=== PATIENT | female | born 2000 | race Caucasian/White ===

== ENCOUNTER 2019-08-06 09:22 | Outpatient (CLI) | payer OTHER ==
[2019-08-06 10:15] LABS: AMORPHOUS SEDIMENT,URINE TRACE /HPF; APPEARANCE,URINE CLOUDY; BILIRUBIN,URINE NEGATIVE (NEGATIVE); COLOR,URINE YELLOW; GLUCOSE, URINE NEGATIVE (NEGATIVE); KETONES,URINE NEGATIVE (NEGATIVE); LEUKOCYTE ESTERASE,URINE NEGATIVE (NEGATIVE); NITRITE,URINE NEGATIVE (NEGATIVE); PROTEIN,URINE 30 mg/dL (NEGATIVE); URINE SPECIFIC GRAVITY 1.011; UROBILINOGEN,URINE NEGATIVE mg/dL (<2.0)
[2019-08-06 10:29] LABS: URINE AMPHETAMINES SCREEN NEGATIVE; URINE BARBITURATES SCREEN NEGATIVE; URINE BENZODIAZEPINES SCREEN NEGATIVE; URINE COCAINE SCREEN NEGATIVE; URINE MARIJUANA (THC) SCREEN NEGATIVE; URINE METHADONE SCREEN NEGATIVE; URINE PHENCYCLIDINE SCREEN NEGATIVE
[2019-08-06] MEDS ORDERED: RINGERS SOLUTION,LACTATED 1,000 ML IV PRN (10:29)
[2019-08-06] MEDS ORDERED: RINGERS SOLUTION,LACTATED 300 ML IV ONE (10:29)
[2019-08-06] MEDS ORDERED: CEFTRIAXONE INJ 1000 MG VIAL IV ONE ×2 (10:36→11:00)
[2019-08-06] MEDS ORDERED: HYDROXYZINE PAMOATE 50 MG CAPSULE PO ONE (10:36)
[2019-08-06] MEDS ORDERED: CEFTRIAXONE INJ 1000 MG VIAL ONE (10:37)
[2019-08-06] MEDS ORDERED: HYDROXYZINE PAMOATE 50 MG CAPSULE ONE (10:37)
[2019-08-06 11:27] LABS: T.VAGINALIS (WET MOUNT) NO TRICHOMONAS SEEN; WBCS (WET MOUNT) FEW WBCS SEEN; YEAST (WET MOUNT) NO YEAST SEEN
[2019-08-06 11:28] LABS: BACTERIA (WET MOUNT) 4+ BACTERIA SEEN; EPITHELIALS (WET MOUNT) 4+ EPITHELIALS SEEN
--- NOTE | 2019-08-06 12:05 | RADIOLOGY REPORT (SQ) ---
EXAM DESCRIPTION: U/S OB LIMITED COMPLETED DATE/TIME: 08/06/2019 11:45 am REASON FOR STUDY: r/o PTL COMPARISON: None. TECHNIQUE: Limited transabdominal grayscale ultrasound for evaluation of specific requested obstetri tata parameters. LIMITATIONS: None. FINDINGS: CERVICAL LENGTH: 3.3 cm Closed. EMMY: 18 cm. FHR: 145 beats per minute. PRESENTATION: Vertex. PLACENTA: Anterior ANATOMY: Not assessed OTHER: No other findings. IMPRESSION: LIMITED OBSTETRICAL ULTRASOUND WITH MEASURED PARAMETERS DELINEATED ABOVE. Trimester of : Second trimester - 13 weeks 1 day to 27 weeks 6 days. TECHNICAL DOCUMENTATION: JOB ID: [id number]- All Rights Reserved Reading location - IP/workstation name: [email or web address]
[2019-08-06 12:51] LABS: CHLAM PCR NOT DETECTED (NOT DETECT)
== END 2019-08-06 12:21 | disposition home or self-care (01) ==
LOC: LC 09:22
PROVIDERS: ATTEND Obstetrics & Gynecology
PROC: 4A1HXCZ Monitoring of Products of Conception, Cardiac Rate, External Approach (ICD-10-PCS; principal; 2019-08-06)
DX: O47.02 False labor before 37 completed weeks of gestation, second trimester (principal); Z3A.26 26 weeks gestation of pregnancy
CPT/HCPCS: 87210; 81001; 80307; 87491; 87591; 76815; 59899; J0696; 87086

== ENCOUNTER 2019-08-16 19:28 | Outpatient (CLI) | payer OTHER ==
[2019-08-16 20:30] LABS: APPEARANCE,URINE SLIGHTLY-CLOUDY; BILIRUBIN,URINE NEGATIVE (NEGATIVE); COLOR,URINE STRAW; GLUCOSE, URINE NEGATIVE (NEGATIVE); KETONES,URINE NEGATIVE (NEGATIVE); LEUKOCYTE ESTERASE,URINE TRACE (NEGATIVE); NITRITE,URINE NEGATIVE (NEGATIVE); PROTEIN,URINE NEGATIVE (NEGATIVE); URINE SPECIFIC GRAVITY 1.006; UROBILINOGEN,URINE NEGATIVE mg/dL (<2.0)
[2019-08-16 20:49] LABS: URINE AMPHETAMINES SCREEN NEGATIVE; URINE BARBITURATES SCREEN NEGATIVE; URINE BENZODIAZEPINES SCREEN NEGATIVE; URINE COCAINE SCREEN NEGATIVE; URINE MARIJUANA (THC) SCREEN NEGATIVE; URINE METHADONE SCREEN NEGATIVE; URINE PHENCYCLIDINE SCREEN NEGATIVE
== END 2019-08-16 21:43 | disposition home or self-care (01) ==
LOC: LC 19:28
PROVIDERS: ATTEND Student in an Organized Health Care Education/Training Program
PROC: 4A1HXCZ Monitoring of Products of Conception, Cardiac Rate, External Approach (ICD-10-PCS; principal; 2019-08-16)
DX: O36.8120 Decreased fetal movements, second trimester, not applicable or unspecified (principal); Z3A.27 27 weeks gestation of pregnancy
CPT/HCPCS: 59899; 81001; 80307; Q0114

== ENCOUNTER 2019-10-23 19:56 | Outpatient (CLI) | payer OTHER ==
[2019-10-23 20:40] LABS: APPEARANCE,URINE CLOUDY; BILIRUBIN,URINE NEGATIVE (NEGATIVE); COLOR,URINE YELLOW; GLUCOSE, URINE NEGATIVE (NEGATIVE); KETONES,URINE NEGATIVE (NEGATIVE); LEUKOCYTE ESTERASE,URINE MODERATE (NEGATIVE); NITRITE,URINE NEGATIVE (NEGATIVE); PROTEIN,URINE NEGATIVE (NEGATIVE); URINE SPECIFIC GRAVITY 1.011; UROBILINOGEN,URINE NEGATIVE mg/dL (<2.0)
[2019-10-23 20:58] LABS: URINE AMPHETAMINES SCREEN NEGATIVE; URINE BARBITURATES SCREEN NEGATIVE; URINE BENZODIAZEPINES SCREEN NEGATIVE; URINE COCAINE SCREEN NEGATIVE; URINE MARIJUANA (THC) SCREEN NEGATIVE; URINE METHADONE SCREEN NEGATIVE; URINE PHENCYCLIDINE SCREEN NEGATIVE
--- NOTE | 2019-10-23 21:25 | Non Stress Test Report ---
Non Stress Test Datetime Report Generated by CPN: 10/23/2019 21:25 DEMOGRAPHIC EGA NST: 37.4 VITAL SIGNS Temperature - NST: 98.1 MONITORING Monitor Explained: Monitor Explained; Test Explained; Patient Verbalized Understanding Time on Monitor: 10/23/2019 20:33 Time off Monitor: 10/23/2019 20:53 NST Duration: 20 NST INTERVENTIONS NST Interventions: PO Hydration; Reposition Patient Physician Notified NST: Dr. Peñaloza BABY A: [id number] BABY A Movement : Present Contraction Frequency : None FHR Baseline : 130 Accelerations : 15X15 Decelerations : None Variability : Moderate 6-25bpm NST Review: Meets Criteria for Reactive NST NST Review and Verified By : YESICA jon Results: Reactive NST REPORT Report Trigger: Send Report
== END 2019-10-23 21:25 | disposition home or self-care (01) ==
LOC: LC 19:56
PROVIDERS: ATTEND Obstetrics & Gynecology
PROC: 4A1HXCZ Monitoring of Products of Conception, Cardiac Rate, External Approach (ICD-10-PCS; principal; 2019-10-23)
DX: Z34.03 Encounter for supervision of normal first pregnancy, third trimester (principal); Z3A.37 37 weeks gestation of pregnancy
CPT/HCPCS: 59025; 80307; 81005

== ENCOUNTER 2019-10-27 23:45 | Inpatient (IN) | payer OTHER ==
[2019-10-28 00:24] LABS: APPEARANCE,URINE CLOUDY; BILIRUBIN,URINE NEGATIVE (NEGATIVE); COLOR,URINE YELLOW; GLUCOSE, URINE NEGATIVE (NEGATIVE); KETONES,URINE NEGATIVE (NEGATIVE); LEUKOCYTE ESTERASE,URINE MODERATE (NEGATIVE); NITRITE,URINE NEGATIVE (NEGATIVE); PROTEIN,URINE NEGATIVE (NEGATIVE); URINE SPECIFIC GRAVITY 1.009; UROBILINOGEN,URINE NEGATIVE mg/dL (<2.0)
[2019-10-28 00:39] LABS: URINE AMPHETAMINES SCREEN NEGATIVE; URINE BARBITURATES SCREEN NEGATIVE; URINE BENZODIAZEPINES SCREEN NEGATIVE; URINE COCAINE SCREEN NEGATIVE; URINE MARIJUANA (THC) SCREEN NEGATIVE; URINE METHADONE SCREEN NEGATIVE; URINE PHENCYCLIDINE SCREEN NEGATIVE
[2019-10-28] MEDS ORDERED: RINGERS SOLUTION,LACTATED 1,000 ML IV PRN (00:47)
[2019-10-28 01:13] LABS: ABSOLUTE EOSINOPHILS # (AUTO) 0.1 10^3/uL (0.0-0.6); ABSOLUTE LYMPHOCYTES (AUTO) 3.4 10^3/uL (0.5-4.7); ABSOLUTE NEUT (AUTO) 8.3 10^3/uL (1.7-8.2); BASOPHILS % (AUTO) 0.4 % (0-2); EOSINOPHILS % (AUTO) 0.7 % (0-6); HEMOGLOBIN 12.5 g/dL (12.0-15.5); LYMPHOCYTES % (AUTO) 26.4 % (13-45); MEAN CORPUSCULAR HGB CONC 34.7 g/dL (32.0-36.0); MEAN CORPUSCULAR VOLUME 89 fl (80-97); MONOCYTES % (AUTO) 7.7 % (3-13); PLATELET COUNT 236 10^3/uL (150-450); RED BLOOD COUNT 4.03 10^6/uL (3.72-5.28); RED CELL DISTRIBUTION WIDTH 12.4 % (11.5-14.0); SEGMENTED NEUTROPHILS % (AUTO) 64.8 % (42-78); TOTAL CELLS COUNTED % (AUTO) 100 %; WHITE BLOOD COUNT 12.8 10^3/uL (4.0-10.5)
[2019-10-28] MEDS ORDERED: ONDANSETRON HCL INJ/PF 4 MG/2 ML SDV IV PRN (01:19)
[2019-10-28] MEDS ORDERED: ONDANSETRON HCL INJ/PF 4 MG/2 ML SDV ONE (01:20)
[2019-10-28] MEDS ORDERED: RINGERS SOLUTION,LACTATED 1,000 ML IV ONE (01:30)
--- NOTE | 2019-10-28 01:34 | Admission Physical ---
Datetime Report Generated by CPN: 10/28/2019 01:33 CURRENT ADMISSION Chief Complaint: Uterine Contractions; Suspected Ruptured Membranes Indication for Induction: Not Applicable Admit Impression : Term, Intrauterine ; Active Labor; Ruptured Membranes Admit Plan: Admit to Unit; Initiate Labor Protocol ALLERGIES Medication Allergies: No Medication Allergies: No Known Allergies (08/06/2019) Latex: No Latex Allergies Food Allergies: no Environmental Allergies: no OBSTETRICAL HISTORY EDC: 11/09/2019 00:00 : 1 Para: 0 Term: 0 : 0 SAB: 0 IAB: 0 Ectopic: 0 Livin Cesareans: 0 VBACs: 0 Multiple Births: 0 Gestational Diabetes: No Rh Sensitization: No Incompetent Cervix: No AMITA: No Infertility: No ART Treatment: No Uterine Anomaly: No IUGR: No Hx Previous C/S: No Macrosomia: No Hx Loss/Stillborn: No PIH: No Hx : No Placenta Previa/Abruption: No Depression/PP Depression: No PTL/PROM: No Post Hemorrhage: No Current Procedures: Ultrasound Obstetrical History Comments: G1- current SEE RECORDS Alcohol: No Marijuana : No Cocaine: No Other Illicit Drugs: No Cigarettes: Former Smoker. [id number] MEDICAL HISTORY Diabetes: No Blood Transfusion: No Pulmonary Disease (Asthma, TB): No Breast Disease: No Hypertension: No Globe Mounter Surgery: No Heart Disease: No Hosp/Surgery: No Autoimmune Disorder: No Anesthetic Complications: No Kidney Disease: No Abnormal Pap Smear: No Neuro/Epilepsy: No Psychiatric Disorders: Yes Other Medical Diseases: No Hepatitis/Liver Disease: No Significant Family History: No Varicosities/Phlebitis: No Trauma/Violence : No Thyroid Dysfunction: No Medical History Comments: anxiety, depression INFECTIOUS HISTORY Gonorrhea: No Genital Herpes: No Chlamydia: No Tuberculosis: No Syphilis: No Hepatitis: No HIV/AIDS Exposure: No Rash or Viral Illness: No HPV: No PHYSICAL EXAM General: Normal HEENT: Normal Neurologic: Normal Thyroid: Deferred Heart: Normal Lungs: Normal Breast: Deferred Back: Normal Abdomen: Normal Genitourinary Exam: Normal Extremities: Normal DTRs: Normal Pelvic Type: Adequate Vital Signs: Reviewed VAGINAL EXAM Dilatation: 5 Effacement: 80 Station: 0 Contraction Comments: q 2-3 MEMBRANES Membranes: Ruptured Amniotic Fluid Color: Clear FETUS A EGA: 38.2 Monitoring: External US FHR- Baseline: 125 Variability: Moderate 6-25bpm Accelerations: 15X15 Decelerations: None FHR Category: Category I Presentation: Vertex Admit Comment: 19yo at 38+2ega presents for regular uterine ctx and LOF (clear ) at 2330. She is GBS negative. SHe received care at [facility]. Failed 1 hr GTT - passed 3 hr GTT. No h/o HSV. Anemia. She is declining epidural at this time but it is available if she desires. Admit and anticipate . PLANS FOR LABOR AND DELIVERY Labor and Delivery: Plan Pain Management: Natural Feeding Preference: Breast Benefit of Breast Feed Discussed: Yes Circumcision: Yes INFORMED CONSENT Informed Consent Obtained: Vaginal Delivery; Risks, Benefits and Alternatives Discussed Signature: with User ID: [email or web address]
[2019-10-28] MEDS ORDERED: OXYTOCIN 10 UNIT/ML VIAL ONE (01:58)
[2019-10-28] MEDS ORDERED: OXYTOCIN/NORMAL SALINE 20 UNIT/1,000 ML RTUINJ ONE (01:59)
[2019-10-28] MEDS ORDERED: BUPIVACAINE HCL 0.25 % INJ/PF (2.5 MG/1 ML) 30 ML VIAL ONE (01:59)
[2019-10-28] MEDS ORDERED: MISOPROSTOL 0.2 MG TABLET ONE (01:59)
[2019-10-28] MEDS ORDERED: EPHEDRINE SULFATE INJ 50 MG/1 ML AMPULE ONE (01:59)
[2019-10-28] MEDS ORDERED: FENTANYL/BUPIVACAINE/NS/PF 300 MCG/150 ML RTUINJ EPI ONE (01:59)
[2019-10-28] MEDS ORDERED: LIDOCAINE 1% INJ-PF (10 MG/ML) 30 ML SDV ONE (01:59)
[2019-10-28] MEDS ORDERED: PROMETHAZINE HCL 25 MG TABLET PO PRN (04:05)
[2019-10-28] MEDS ORDERED: BENZOCAINE/MENTHOL AEROSOL SPRAY 56 ML TOP PRN (04:05)
[2019-10-28] MEDS ORDERED: PSEUDOEPHEDRINE HCL 30 MG TABLET PO PRN (04:05)
[2019-10-28] MEDS ORDERED: OXYTOCIN/NORMAL SALINE 20 UNIT/1,000 ML RTUINJ IV PRN (04:05)
[2019-10-28] MEDS ORDERED: NA PHOS,M-B/NA PHOS,DI-BA (ADULT) 133 ML ENEMA PR PRN (04:05)
[2019-10-28] MEDS ORDERED: GLYCERIN/WITCH HAZEL LEAF 1 EACH MED..WIPE TP PRN (04:05)
[2019-10-28] MEDS ORDERED: PROMETHAZINE HCL 25 MG SUPP.RECT PR PRN (04:05)
[2019-10-28] MEDS ORDERED: DIPHENHYDRAMINE HCL 25 MG CAPSULE PO PRN (04:05)
[2019-10-28] MEDS ORDERED: DIPH/PERTUSS(ACELL)/TETANUS VAC/PF 0.5 ML SYR (>=10YO) IM PRN (04:05)
[2019-10-28] MEDS ORDERED: DIBUCAINE 1% OINTMENT 28 GM TP PRN (04:05)
[2019-10-28] MEDS ORDERED: MAGNESIUM HYDROXIDE SUSP 30 ML UDCUP PO PRN (04:05)
[2019-10-28] MEDS ORDERED: MEASLES,MUMPS&RUBELLA VACC/PF 0.5 ML VIAL SUBCUT PRN (04:05)
[2019-10-28] MEDS ORDERED: MISOPROSTOL 0.2 MG TABLET PR PRN (04:05)
[2019-10-28] MEDS ORDERED: PROMETHAZINE HCL INJ 25 MG/1 ML VIAL IV PRN (04:05)
[2019-10-28] MEDS ORDERED: ACETAMINOPHEN 325 MG TABLET PO PRN (04:05)
[2019-10-28] MEDS ORDERED: ZOLPIDEM TARTRATE 5 MG TABLET PO PRN (04:05)
[2019-10-28] MEDS ORDERED: ACETAMINOPHEN WITH CODEINE #3 TABLET PO PRN (04:05)
[2019-10-28] MEDS ORDERED: ACETAMINOPHEN WITH CODEINE #3 TABLET ONE (05:11)
[2019-10-28] MEDS ORDERED: IBUPROFEN 800 MG TABLET ONE (05:11)
[2019-10-28] MEDS: IBUPROFEN 800 MG TABLET PO SCH ×3 (05:15→21:02)
[2019-10-28] MEDS: ACETAMINOPHEN WITH CODEINE #3 TABLET PO PRN ×3 (05:15→16:07)
--- NOTE | 2019-10-28 05:39 | Delivery Summary ---
Del Sum A-C Datetime Report Generated by CPN: 10/28/2019 05:38 DELIVERY PERSONNEL DELIVERY PERSONNEL: [id number] Delivery Doctor:: Janette Humphreys MD Anesthesiologist:: Rao Bocanegra MD Labor and Delivery Nurse:: Mdadie Rider RNdrivers' cash clerk Nurse:: Sue Burgess RN Nursery Nurse:: YESICA Larry Tech/VISITOR SERVICES COORDINATOR: Aiyana Meier, ST MATERNAL INFORMATION Delivery Anesthesia: Epidural Medications After Delivery: Pitocin Drip 20 Units/1000ml NSS; Cytotec 1000mcg Per Rectum/Vagina Estimated Blood Loss (ml): 100 Delivery QBL Comment: 100 Maternal Complications: None; Precipitous Labor (<3hrs) Provider Comments: VMI delivered in OZ presentation with compound left arm. No nucal cord. Shoulders and body delivered without difficulty. cord doubly clamped and cut and infant to maternal abdomen. Short umbilical cord. FF at U. Mild atony with good response to cytotec 1000mcg NV. Good hemostasis. Good perineal laceration repaired with good hemostasis. Mother and baby stable upon provider leaving the room LABOR SUMMARY EDC: 11/09/2019 00:00 No. Babies in Womb: 1 Attempted: No Labor Anesthesia: Epidural LABOR INFORMATION Reason for Induction: Not Applicable Onset of Labor: 10/27/2019 23:30 Complete Dilatation: 10/28/2019 02:48 Cervical Ripening Agents: Cytotec @ 1000 Oxytocin: N/A Group B Beta Strep: negative Steroids Given: None Reason Steroids Not Administered: Not Applicable MEMBRANES Membranes Rupture Method: Spontaneous Rupture of Membranes: 10/27/2019 23:30 Length of Rupture (hr): 3.73 Amniotic Fluid Color: Clear Amniotic Fluid Amount: Moderate Amniotic Fluid Odor: Normal STAGES OF LABOR Stage 1 hr: 3 Stage 1 min: 18 Stage 2 hr: 0 Stage 2 min: 26 Stage 3 hr: 0 Stage 3 min: 6 Total Time in Labor hr: 3 Total Time in Labor min: 50 VAGINAL DELIVERY Episiotomy: None Laceration #1: Perineal Laceration Extension #1: First Degree Laceration Repair: Yes Laceration Repair Note: 1st degree perineal laceration repaired with good hemostasis. (Annotations: Data stored by [facility] on behalf of user) Sponge Count Correct: Yes Sharps Count Correct: Yes CSECTION DELIVERY Primary Indication: N/A Secondary Indication: N/A CSection Incision: N/A BABY A INFORMATION Delivery Date/Time: 10/28/2019 03:14 Method of Delivery: Vaginal Born in Route : No : N/A Forceps: N/A Vacuum Extraction: N/A Shoulder Dystocia : No PRESENTATION/POSITION BABY A Presentation: Cephalic Cephalic Presentation: Vertex Vertex Position: Right Occipital Anterior with Left compound arm Breech Presentation: N/A PLACENTA INFORMATION BABY A Placenta Delivery Time : 10/28/2019 03:20 Placenta Method of Delivery: Spontaneous Placenta Status: Delivered SCORES BABY A Heart Rate 1 min: >100 bpm Resp Effort 1 min: Good Cry Reflex Irritability 1 min: Cough or Sneeze or Pulls Away Muscle Tone 1 min: Active Motion Color 1 min: Body [place], Extremities Blue Resuscitation Effort 1 min: Tactile Stimulation SCORE 1 MIN: 9 Heart Rate 5 min: >100 bpm Resp Effort 5 min: Good Cry Reflex Irritability 5 min: Cough or Sneeze or Pulls Away Muscle Tone 5 min: Active Motion Color 5 min: Body [place], Extremities Blue Resuscitation Effort 5 min: Tactile Stimulation SCORE 5 MIN: 9 INFANT INFORMATION BABY A Gestational Age at Delivery: 38.2 Gestational Status: Early Term- 37- 38.6 Weeks Outcome : Liveborn Infant Condition : Stable Sex: Male IDENTIFICATION BABY A Verification Date/Time: 10/28/2019 03:59 ID Band Number: [id number] Mother's Name Verified: Yes RN Verifying Infant: Jake FuentesYESICA Additional Verifying Personnel: Bonita Rider RN WEIGHT/LENGTH BABY A Birthweight (gm): 2940 Infant Weight (lb): 6 Infant Weight (oz): 8 Infant Length (in): 20.00 Length (cm): 50.80 CORD INFORMATION BABY A No. Cord Vessels: 3 Nuchal Cord : N/A Nuchal Cord- Other: left compound arm Cord Blood Taken: Yes-For Eval (Mom's Blood Type - or O+) Infant Suction: None ASSESSMENT BABY A Physical Findings at Delivery: Other Physical Findings- Other: voided at delivery, right ear slightly bent at top of ear Respirations: Appears Normal Skin to Skin: Yes Skin to Skin Time (min): 60 Biomedical Repair Technician/ALS Called : No Transferred To: Remains with Mother BABY B INFORMATION : N/A SIGNATURES Signature: with User ID: [email or web address]
[2019-10-28] MEDS: FAMOTIDINE 20 MG TABLET PO SCH ×2 (09:36→21:04)
[2019-10-28] MEDS: DOCUSATE SODIUM 100 MG CAPSULE PO SCH ×2 (09:36→18:23)
[2019-10-28] MEDS: SENNOSIDES/DOCUSATE 8.6-50 MG 1 EACH TABLET PO SCH (09:37)
[2019-10-28] MEDS: FERROUS SULFATE 325 MG TABLET PO SCH ×2 (09:37→18:23)
[2019-10-28] MEDS: PRENATAL VITAMIN W DHA CAPSULE PO SCH (09:37)
--- NOTE | 2019-10-28 11:03 | PDOC PROGRESS REPORT ---
Subjective-OB Progress Note for:: 10/28/19 - Delivery Day, doing well, up to void Physical Exam (OB) Vital Signs: Temp Pulse Resp BP Pulse Ox 98.4 F 77 16 120/53 L 97 10/28/19 07:24 10/28/19 07:24 10/28/19 07:24 10/28/19 07:24 10/28/19 07:24 Intake & Output 10/27/19 10/28/19 10/29/19 06:59 06:59 06:59 Weight 79.4 kg - General General Appearance: Appears well, Alert In distress: None - PIH/Pre-Eclampsia DTR's: 2 + Clonus: Negative Headache: Absent Epigastric Pain: No - Lochia Lochia Amount: Moderate 25-50 ml Lochia Color: Rubra/Red - Abdomen Description: Soft Hernia Present: No Fundal Description: Firm, Midline Fundal Height: u/u - u/2 - Respiratory Respiratory Status: No respiratory distress - Genitourinary Genitourinary Note: needs to void in PP room Objective-Diagnostic Laboratory: 10/28/19 01:00 10/27/19 10/28/19 10/28/19 23:56 01:00 01:00 WBC 12.8 H RBC 4.03 Hgb 12.5 Hct 36.0 MCV 89 MCH 31.0 MCHC 34.7 RDW 12.4 Plt Count 236 Seg Neutrophils % 64.8 Urine Color YELLOW Urine Appearance CLOUDY Urine pH 7.0 Ur Specific [place] 1.009 Urine Protein NEGATIVE Urine Glucose (UA) NEGATIVE Urine Ketones NEGATIVE Urine Blood LARGE H Urine Nitrite NEGATIVE Ur Leukocyte Esterase MODERATE H Blood Type O POSITIVE Antibody Screen NEGATIVE Assessment and Plan(PN) - Assessment and Plan (1) Laceration, obstetrical, first degree Is this a current diagnosis for this admission?: Yes (2) Precipitous delivery, delivered (current hospitalization) Is this a current diagnosis for this admission?: Yes Plan:: ambulation encouraged. Routine PP orders - Time Spent with Patient Time with patient: Less than 15 minutes Medications reviewed and adjusted accordingly: Yes - Disposition Anticipated Discharge: Home Within: within 48 hours
[2019-10-29] MEDS: IBUPROFEN 800 MG TABLET PO SCH ×3 (05:57→21:58)
[2019-10-29 06:57] LABS: MEAN CORPUSCULAR VOLUME 90 fl (80-97)
[2019-10-29 07:04] LABS: HEMATOCRIT 29.8 % (36.0-47.0); MEAN CORPUSCULAR HEMOGLOBIN 31.6 pg (27.0-33.4); MEAN CORPUSCULAR HGB CONC 35.3 g/dL (32.0-36.0); PLATELET COUNT 192 10^3/uL (150-450); RED BLOOD COUNT 3.32 10^6/uL (3.72-5.28); RED CELL DISTRIBUTION WIDTH 12.5 % (11.5-14.0); WHITE BLOOD COUNT 12.6 10^3/uL (4.0-10.5)
[2019-10-29 07:05] LABS: HEMOGLOBIN 10.5 g/dL (12.0-15.5)
--- NOTE | 2019-10-29 09:42 | PDOC PROGRESS REPORT ---
Subjective-OB Progress Note for:: 10/29/19 Subjective: Pt doing well, no concerns. She reports light bleeding, reg diet and voiding without difficulty. Physical Exam (OB) Vital Signs: Temp Pulse Resp BP Pulse Ox 98.2 F 70 16 114/60 99 10/29/19 07:35 10/29/19 07:35 10/29/19 07:35 10/29/19 07:35 10/29/19 07:35 Intake & Output 10/28/19 10/29/19 10/30/19 06:59 06:59 06:59 Weight 79.4 kg - PIH/Pre-Eclampsia DTR's: 1 + Clonus: Negative Headache: Absent Epigastric Pain: No Visual Changes: No - Lochia Lochia Amount: Small 10-25 ml Lochia Color: Rubra/Red - Abdomen Description: Soft, Round Hernia Present: No Fundal Description: Firm, Midline Fundal Height: u/u - u/2 Objective-Diagnostic Laboratory: 10/29/19 06:47 10/29/19 06:47 WBC 12.6 H RBC 3.32 L Hgb 10.5 L Hct 29.8 L MCV 90 MCH 31.6 MCHC 35.3 RDW 12.5 Plt Count 192 Assessment and Plan(PN) - Assessment and Plan (1) Laceration, obstetrical, first degree Is this a current diagnosis for this admission?: Yes (2) Precipitous delivery, delivered (current hospitalization) Is this a current diagnosis for this admission?: Yes (3) Asthma affecting in third trimester Is this a current diagnosis for this admission?: Yes - Time Spent with Patient Time with patient: Less than 15 minutes Medications reviewed and adjusted accordingly: Yes - Disposition Anticipated Discharge: Home Within: within 24 hours
[2019-10-29] MEDS: FERROUS SULFATE 325 MG TABLET PO SCH ×2 (09:58→18:39)
[2019-10-29] MEDS: SENNOSIDES/DOCUSATE 8.6-50 MG 1 EACH TABLET PO SCH (09:58)
[2019-10-29] MEDS: DOCUSATE SODIUM 100 MG CAPSULE PO SCH ×2 (09:58→18:39)
[2019-10-29] MEDS: PRENATAL VITAMIN W DHA CAPSULE PO SCH (09:59)
[2019-10-29] MEDS: FAMOTIDINE 20 MG TABLET PO SCH ×2 (10:01→21:58)
[2019-10-29] MEDS: ACETAMINOPHEN WITH CODEINE #3 TABLET PO PRN ×3 (13:10→23:35)
[2019-10-29] MEDS ORDERED: FAMOTIDINE 20 MG TABLET ONE (20:59)
[2019-10-30] MEDS: IBUPROFEN 800 MG TABLET PO SCH ×2 (05:22→14:23)
[2019-10-30 08:52] VITALS: BP 116/65
[2019-10-30] MEDS: SENNOSIDES/DOCUSATE 8.6-50 MG 1 EACH TABLET PO SCH (10:39)
[2019-10-30] MEDS: DOCUSATE SODIUM 100 MG CAPSULE PO SCH ×2 (10:39→18:55)
[2019-10-30] MEDS: FERROUS SULFATE 325 MG TABLET PO SCH ×2 (10:39→18:55)
[2019-10-30] MEDS: PRENATAL VITAMIN W DHA CAPSULE PO SCH (10:39)
[2019-10-30] MEDS: FAMOTIDINE 20 MG TABLET PO SCH (10:41)
--- NOTE | 2019-10-30 10:58 | PDOC DISCHARGE SUMMARY ---
Impression - Admit/DC Date/PCP Admission Date/Primary Care Provider: 10/28/19 01:03 Discharge Date: 10/30/19 - Discharge Diagnosis (1) Acute blood loss anemia Is this a current diagnosis for this admission?: Yes (2) Laceration, obstetrical, first degree Is this a current diagnosis for this admission?: Yes (3) Precipitous delivery, delivered (current hospitalization) Is this a current diagnosis for this admission?: Yes (4) Asthma affecting in third trimester Is this a current diagnosis for this admission?: Yes - Assessment Summary: term vaginal delivery- day 2- stable and ready for discharge - Additional Information Resuscitation Status: Full Code Discharge Diet: As Tolerated, Regular Discharge Activity: Activity As Tolerated, Balance Activity w/Rest, No Lifting Over 10 Pounds, No Lifting/Push/Pulling, Pelvic Rest, Slowly Increase Activity, No tub bath, Walk Frequently Prescriptions: Ibuprofen [Motrin 800 mg Tablet] 800 mg PO Q8HP PRN #20 tablet PRN Reason: Abdominal Cramping Docusate Sodium [Colace 100 mg Capsule] 100 mg PO BID #60 capsule Ferrous Sulfate [Feosol 325 mg Tablet] 325 mg PO BID #60 tablet Home Medications: Vits96/Iron Fum/Folic [ Tablet] 1 tab PO DAILY 08/06/19 Docusate Sodium [Colace 100 mg Capsule] 100 mg PO BID #60 capsule 10/30/19 Ferrous Sulfate [Feosol 325 mg Tablet] 325 mg PO BID #60 tablet 10/30/19 Ibuprofen [Motrin 800 mg Tablet] 800 mg PO Q8HP PRN #20 tablet 10/30/19 Results Laboratory Results: WBC 12.6 10^3/uL (4.0-10.5) H 10/29/19 06:47 RBC 3.32 10^6/uL (3.72-5.28) L 10/29/19 06:47 Hgb 10.5 g/dL (12.0-15.5) L 10/29/19 06:47 Hct 29.8 % (36.0-47.0) L 10/29/19 06:47 MCV 90 fl (80-97) 10/29/19 06:47 MCH 31.6 pg (27.0-33.4) 10/29/19 06:47 MCHC 35.3 g/dL (32.0-36.0) 10/29/19 06:47 RDW 12.5 % (11.5-14.0) 10/29/19 06:47 Plt Count 192 10^3/uL (150-450) 10/29/19 06:47 Lymph % (Auto) 26.4 % (13-45) 10/28/19 01:00 [place] % (Auto) 7.7 % (3-13) 10/28/19 01:00 Eos % (Auto) 0.7 % (0-6) 10/28/19 01:00 Baso % (Auto) 0.4 % (0-2) 10/28/19 01:00 Absolute Neuts (auto) 8.3 10^3/uL (1.7-8.2) H 10/28/19 01:00 Absolute Lymphs (auto) 3.4 10^3/uL (0.5-4.7) 10/28/19 01:00 Absolute Monos (auto) 1.0 10^3/uL (0.1-1.4) 10/28/19 01:00 Absolute Eos (auto) 0.1 10^3/uL (0.0-0.6) 10/28/19 01:00 Absolute Basos (auto) 0.0 10^3/uL (0.0-0.2) 10/28/19 01:00 Seg Neutrophils % 64.8 % (42-78) 10/28/19 01:00 Urine Color YELLOW 10/27/19 23:56 Urine Appearance CLOUDY 10/27/19 23:56 Urine pH 7.0 (5.0-9.0) 10/27/19 23:56 Ur Specific [place] 1.009 10/27/19 23:56 Urine Protein NEGATIVE mg/dL (NEGATIVE) 10/27/19 23:56 Urine Glucose (UA) NEGATIVE mg/dL (NEGATIVE) 10/27/19 23:56 Urine Ketones NEGATIVE mg/dL (NEGATIVE) 10/27/19 23:56 Urine Blood LARGE (NEGATIVE) H 10/27/19 23:56 Urine Nitrite NEGATIVE (NEGATIVE) 10/27/19 23:56 Urine Bilirubin NEGATIVE (NEGATIVE) 10/27/19 23:56 Urine Urobilinogen NEGATIVE mg/dL (<2.0) 10/27/19 23:56 Ur Leukocyte Esterase MODERATE (NEGATIVE) H 10/27/19 23:56 Urine Ascorbic Acid NEGATIVE (NEGATIVE) 10/27/19 23:56 Membranes Rupture POSITIVE (NEGATIVE) H 10/27/19 23:56 Urine Opiates Screen NEGATIVE 10/27/19 23:56 Urine Methadone Screen NEGATIVE 10/27/19 23:56 Ur Barbiturates Screen NEGATIVE 10/27/19 23:56 Ur Phencyclidine Scrn NEGATIVE 10/27/19 23:56 Ur Amphetamines Screen NEGATIVE 10/27/19 23:56 U Benzodiazepines Scrn NEGATIVE 10/27/19 23:56 Urine Cocaine Screen NEGATIVE 10/27/19 23:56 U Marijuana (THC) Screen NEGATIVE 10/27/19 23:56 RPR NONREACTIVE (NONREACTIVE) 10/28/19 01:00 Blood Type O POSITIVE 10/28/19 01:00 Antibody Screen NEGATIVE 10/28/19 01:00
[2019-10-30] MEDS: ACETAMINOPHEN WITH CODEINE #3 TABLET PO PRN (14:23)
== END 2019-10-30 19:15 | disposition home or self-care (01) | DRG 806 ==
LOC: LC 23:45 → LR 10-28 01:03 → 2S 10-28 06:16
PROVIDERS: ADMIT Student in an Organized Health Care Education/Training Program; ATTEND Student in an Organized Health Care Education/Training Program
PROC: 10E0XZZ Delivery of Products of Conception, External Approach (ICD-10-PCS; principal; 2019-10-28)
PROC: 0HQ9XZZ Repair Perineum Skin, External Approach (ICD-10-PCS; 2019-10-28)
DX: O62.3 Precipitate labor (principal); D62 Acute posthemorrhagic anemia; Z37.0 Single live birth; O99.344 Other mental disorders complicating childbirth; F41.8 Other specified anxiety disorders; O32.6XX0 Maternal care for compound presentation, not applicable or unspecified; O69.3XX0 Labor and delivery complicated by short cord, not applicable or unspecified; O62.2 Other uterine inertia; O70.0 First degree perineal laceration during delivery; O99.02 Anemia complicating childbirth; O99.52 Diseases of the respiratory system complicating childbirth; J45.909 Unspecified asthma, uncomplicated; Z3A.38 38 weeks gestation of pregnancy
CPT/HCPCS: 36415; 59025; 80307; 81005; 84112; 85025; 85027; 86592; 86850; 86900; 86901; J2405; J2590; J3010; J3490

== ENCOUNTER 2019-11-27 09:18 | Emergency (ER) | payer OTHER ==
[2019-11-27] MEDS ORDERED: TETRACAINE HCL 0.5% OPH SOLN 4 ML OD ONE (10:36)
[2019-11-27] MEDS ORDERED: ERYTHROMYCIN 0.5% OPH OINTMENT 3.5 GM (ER DISP) OD PRN (10:36)
--- NOTE | 2019-11-27 10:41 | ER Document Report ---
HPI - HPI Patient complains to provider of: Right eye irritation Time Seen by Provider: 11/27/19 10:33 Onset: Other - Days Pain Level: 4 Context: 19-year-old female presents emergency department with right eye irritation. She gives history of conjunctivitis for 1 week. She reports she was using the drops Polytrim as prescribed her eyes seem to get better. She reports 3 days ago she started feeling like something is in the right eye. She reports clear drainage and sensitivity to light. Denies allergies. Denies fever vomiting diarrhea. She does not wear contacts. Associated Symptoms: None Exacerbated by: Denies Relieved by: Denies Similar symptoms previously: Yes Recently seen / treated by doctor: Yes - REPRODUCTIVE Reproductive: DENIES: : Past Medical History - General Information source: Patient - Social History Smoking Status: Never Smoker Cigarette use (# per day): No Frequency of alcohol use: None Drug Abuse: None Lives with: Family Family History: None Patient has suicidal ideation: No Patient has homicidal ideation: No - Medical History Medical History: Negative Surgical Hx: Negative Vertical Provider Document - CONSTITUTIONAL Agree With Documented VS: Yes Exam Limitations: No Limitations General Appearance: WD/WN, No Apparent Distress - INFECTION CONTROL TRAVEL OUTSIDE OF THE [place] IN LAST 30 DAYS: No - HEENT HEENT: Atraumatic, Conjuctival Injection - Right, Normocephalic - NECK Neck: Supple - RESPIRATORY Respiratory: No Respiratory Distress - CARDIOVASCULAR Cardiovascular: Regular Rate - MUSCULOSKELETAL/EXTREMETIES Musculoskeletal/Extremeties: MAEW, FROM - NEURO Level of Consciousness: Awake, Alert, Appropriate Motor/Sensory: No Motor Deficit - DERM Integumentary: Warm, Dry, No Rash Course - Re-evaluation Re-evalutation: 11/27/19 11:09 Right eye exam completed. Patient had 1 drop of tetracaine applied. Reports some relief of irritation afterwards. Fluorescein drops applied fluorescein uptake noted very tiny spot in the right upper eye at approximately 10:00. Patient was instructed on erythromycin. Instructed on signs and symptoms of allergic reaction to erythromycin. Instructed on the importance of follow-up with ophthalmology. She verbalized understanding to all instructions. - Vital Signs Vital signs: Temp Pulse Resp BP Pulse Ox 97.8 F 73 18 135/66 H 98 11/27/19 09:26 11/27/19 09:26 11/27/19 09:26 11/27/19 09:26 02 09:26 Procedures - Eye Procedure Right Time completed: 11:08 Eye Irrigated w/ Saline (ccs): 10 Alcaine Drops Administered: Yes - tetracaine Fluorescein applied: Right Antibiotic Oinment/Drps Admin: Right eye Eyes picture: 1 - Patient reports relief of irritation after tetracaine applied. Fluorescein uptake noted Discharge - Discharge Clinical Impression: Irritation of right eye Conjunctival abrasion Qualifiers: Encounter type: initial encounter Laterality: right Qualified Code(s): S05.01XA - Injury of conjunctiva and corneal abrasion without foreign body, right eye, initial encounter Condition: Stable Disposition: HOME, SELF-CARE Instructions: Erythromycin ([facility]) Additional Instructions: *You have been evaluated for eye irritation, conjunctiva abrasion *Use eye ointment as prescribedhalf-inch ribbon to the bottom right eyelid 3 times a day for 5 days *Good hand washing- Do not reuse wash clothes or towels after wiping eyes *Follow up with an treating plant pumper within 1 week for recheck *Return to ED for worsening condition, changes, needs, pain in your eye, concerns Monitor your blood pressure. Your blood pressure was elevated today. This may be because you were anxious, in pain or because you need medication. It is important to follow up with your primary care provider for full evaluation. Forms: Elevated Blood Pressure
[2019-11-27 11:15] VITALS: BP 116/64
== END 2019-11-27 11:12 | disposition home or self-care (01) ==
LOC: ER 09:18
DX: S05.01XA Injury of conjunctiva and corneal abrasion without foreign body, right eye, initial encounter (principal); H10.9 Unspecified conjunctivitis; X58.XXXA Exposure to other specified factors, initial encounter
CPT/HCPCS: J3490